=== PATIENT | female | born 2000 | race Caucasian/White ===

== ENCOUNTER 2021-06-28 05:34 | Emergency (ER) | payer MEDICAID, SELFPAY ==
[2021-06-28 05:38] VITALS: BP 125/91; PULSE 83; RESP 15; TEMP 36.8; O2SAT 100; BMI 18.3
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
[2021-06-28 07:45] VITALS: BP 104/64; PULSE 66; RESP 18; O2SAT 99
== END 2021-06-28 08:40 | disposition home or self-care (01) ==
PROVIDERS: Emergency Provider Emergency Medicine
DX: M25.562 Pain in left knee (principal)
CPT/HCPCS: 73562; 73590; 99283

== ENCOUNTER 2021-08-08 17:23 | Emergency (ER) | payer MEDICAID, SELFPAY ==
[2021-08-08 17:43] VITALS: BP 113/77; PULSE 131; RESP 18; TEMP 39.5; O2SAT 97; BMI 17.7
--- NOTE | 2021-08-08 18:12 | W.ED.COVID ---
HPI - COVID General: Chief Complaint: Abdominal Pain Stated Complaint: RLQ PAIN/ FEVER Time Seen by Provider: 08/08/21 18:06 Triage information: No fever, cough or shortness of breath. No known COVID + exposure last 14 days History of Present Illness: HPI Narrative: Patient complains about fever and general body aches and headache since 7:00 last night. No known Covid exposure. Prior covid testing: no COVID 19 common symptoms: positive fever(s), chills, cough, body aches and headache(s); negative non-productive cough, productive cough, dyspnea, throat pain, nasal congestion, nausea or vomiting COVID 19 other sytmptoms: negative chest pain Onset (ago): hour(s) Severity: moderate Treatment prior to arrival: none COVID Results: No Data to Display Review of Systems Const: Reports: fever(s), chills and body aches Eyes: Denies: change in vision or blurry vision ENMT: Denies: throat pain or nasal congestion Card: Denies: chest pain or dyspnea on exertion Resp: Denies: dyspnea, productive cough or non-productive cough GI: Denies: abdominal pain, nausea or vomiting Musc: Denies: extremity pain Skin/Breast: Denies: rash Neuro: Reports: headache(s) Psych: Denies: anxiety or depression Mykel/Lymph: Denies: easy bruising PFSH ED PFSH: 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 Female Reproductive History: Date of last menstrual period: 07/17/21 Physical Exam Const: COMMON NORMALS: no acute distress, average body habitus and patient oriented x3 HENMT: COMMON NORMALS: normocephalic HEAD & SCALP: normal to inspection and normocephalic FACE & SINUS: normal facial exam Eye: COMMON NORMALS: conjunctivae normal GENERAL EYE: appearance normal, both eyes and all related structures CONJUNCTIVA: Yes conjunctivae normal Neck/C-Spine: COMMON NORMALS: no JVD Chest: COMMONS NORMALS: normal inspection of the chest Resp: COMMON NORMALS: normal respiratory effort and clear to auscultation bilaterally AUSCULTATION: clear to auscultation bilaterally Cardio: COMMON NORMALS: no JVD, regular rate and regular rhythm RATE: regular rate RHYTHM: regular rhythm GI: COMMON NORMALS: Normal to inspection, nondistended, normoactive bowel sounds present : BLADDER/KIDNEY EXAM: Yes CVA tenderness on the right Back/Pelvis: GENERAL BACK: Yes CVA tenderness Extremity: COMMON NORMALS: normal to inspection and full ROM Neuro: COMMON NORMALS: patient oriented x3 Course Vital Signs: Vital signs: Vital Signs Temperature 103.1 F H 08/08/21 17:43 Pulse Rate 131 H 08/08/21 17:43 Respiratory Rate 18 08/08/21 17:43 Blood Pressure 113/77 08/08/21 17:43 Pulse Oximetry 97 08/08/21 17:43 MDM - COVID COVID Results: No Data to Display Coding Level of Care Code ED Night Monitor for Juanito Sage
[2021-08-08 18:35] VITALS: BP 106/61; PULSE 112; RESP 18; O2SAT 97
[2021-08-08] MEDS: sodium chloride 0.9% 1,000 ML 999 ML IV (18:37)
[2021-08-08] MEDS: acetaminophen 500 mg Tablet 1000 MG PO (18:38)
[2021-08-08 18:54] LABS: Basophils # 0.1 10^3/uL (0.0-0.1); Basophils % 0.2 %; Hematocrit 39.2 % (37.0-47.0); Lymphocytes % 4.7 %; Mean Corpuscular HGB Conc 33.2 g/dL (30.0-36.0); Mean Corpuscular Hemoglobin 31.5 pg (28.0-34.0); Mean Corpuscular Volume 94.9 fl (81-99); Mean Platelet Volume 11.1 fL (7.4-10.4); Monocytes # 3.2 10^3/uL (0.2-0.9); Monocytes % 14.3 %; Neutrophils # 17.88 10^3/uL (1.8-7.7); Neutrophils % 80.1 %; Nucleated Red Blood Cells % 0 %; Platelet Count 258 10^3/cmm (130-400); Red Blood Count 4.13 10^6/uL (4.1-5.3); Red Cell Distribution Width 11.9 % (12.1-15.1); White Blood Count 22.3 10^3/uL (4.0-10.0)
[2021-08-08 19:09] LABS: SARS Covid-2 Antigen Negative (Negative)
[2021-08-08 19:12] LABS: Alanine Aminotransferase 27 U/L (0-33); Alkaline Phosphatase 77 IU/L (35-105); Anion Gap 15.5 (5-19); Aspartate Amino Transferase 26 U/L (0-32); Blood Urea Nitrogen 9 mg/dL (6-20); Calcium 8.8 mg/dL (8.5-10.5); Carbon Dioxide 25 mmol/L (22-29); Chloride 97 mmol/L (98-107); Globulin 3.4 g/dL (1.3-4.6); Glomerular Filtration Rate 78.3 mL/min (90-130); Glucose 115 mg/dL (65-115); Lipase 16 U/L (13-60); Osmolality Calculated 278 mOsm/kg (285-295); Potassium 3.5 mmol/L (3.5-5.1); Sodium 134 mmol/L (136-145); Total Bilirubin 0.9 mg/dL (0.15-1.2); Total Protein 7.4 g/dL (6.6-8.7)
--- NOTE | 2021-08-08 19:12 | CTR_ITS ---
PROCEDURE INFORMATION: Exam: CT Abdomen And Pelvis With Contrast Exam date and time: 08/08/2021 7:12 PM Age: 21 years old Clinical indication: Abdominal pain; Localized; Right lower quadrant (rlq); Prior surgery; Surgery type: Shunt; Additional info: Fever. Rlq apin TECHNIQUE: Imaging protocol: Computed tomography of the abdomen and pelvis with contrast. Radiation optimization: All CT scans at this facility use at least one of these dose optimization techniques: automated exposure control; mA and/or kV adjustment per patient size (includes targeted exams where dose is matched to clinical indication); or iterative reconstruction. Contrast material: OMNI 300; Contrast volume: 75 ml; Contrast route: INTRAVENOUS (IV); COMPARISON: No relevant prior studies available. RADIATION DOSE METRICS: Total DLP (mGy-cm): 686.38 FINDINGS: Tubes, catheters and devices: Right -sided ventriculoperitoneal shunt catheter. [id number] pelvic fluid most consistent with fluid from the MIGRATION SPECIALIST shunt catheter. Liver: Normal. No mass. Gallbladder and bile ducts: Normal. No calcified stones. No ductal dilation. Pancreas: Normal. No ductal dilation. Spleen: Normal. No splenomegaly. Adrenal glands: Normal. No mass. Kidneys and ureters: Multiple peripheral wedge-shaped hypodense right renal perfusion defects consistent with right pyelonephritis. Moderate to severe right pyelonephritis with thickening in the right urothelium consistent with significant urinary tract infection. Stomach and bowel: Unremarkable. No obstruction. No mucosal thickening. Appendix: Normal appendix. Intraperitoneal space: Unremarkable. No free air. No significant fluid collection. Vasculature: One or more calcified pelvic phleboliths. Lymph nodes: Unremarkable. No enlarged lymph nodes. Urinary bladder: Unremarkable as visualized. Reproductive: Multiple small bilateral physiologic ovarian cysts. Bones/joints: Unremarkable. No acute fracture. Soft tissues: Unremarkable. Other findings: Mild levoscoliosis. CT/CT abdomen pelvis w con* [id number] IMPRESSION: 1. Fbow-mh-[id number] pelvic fluid most consistent with fluid from the MIGRATION SPECIALIST shunt catheter. 2. Moderate to severe right pyelonephritis with thickening in the right urothelium consistent with significant urinary tract infection. Radiation Dose CTDIVOL = (mGy): DLP = 686.38 (mGy-cm)
[2021-08-08 19:14] LABS: Lactate (Lactic Acid level) 0.9 mmol/L (0.5-2.2)
[2021-08-08] MEDS: ondansetron 2 mg/ML SDV 2 mL 8 MG IVP (19:18)
[2021-08-08 19:19] VITALS: RESP 18
[2021-08-08] MEDS: morphine 4 mg/mL SDV 1 mL IVP (19:19)
[2021-08-08 19:25] LABS: Add Urine Microscopic? YES; Bilirubin Urine 1+ (Negative); Blood Urine 2+ (Negative); Glucose Urine UA Norm (Normal); Ketones Urine 1+ (Negative); Leukocyte Esterase Urine 2+ (Negative); Nitrate Urine Positive (Negative); Protein Urine 2+ (Negative); Specific Gravity, Urine 1.015 (1.005-1.030); Urine Appearance Cloudy (CLEAR); Urine Color Amber (Yellow); Urobilinogen Urine 8 mg/dL (Negative); pH Urine 5 (5-7)
[2021-08-08 19:27] LABS: HCG Qualitative Urine. Negative (Negative)
[2021-08-08 19:28] VITALS: BP 113/70; PULSE 109; RESP 20; TEMP 37.9; O2SAT 96
[2021-08-08 19:41] LABS: Add Urine Culture? Yes; Bacteria Urine 2+ /hpf; Squamous Epithelial Cell Urine 0-4 /hpf (0-5); WBC Urine 55-80 /hpf (0-5)
[2021-08-08] MEDS: cefTRIAXone 1,000 MG in sodium chloride 0.9% (plus) 50 ML 100 MG IV (20:04)
[2021-08-08] MEDS: iohexol 300 mg/mL 100 mL Btl IV (20:08)
[2021-08-08 21:22] VITALS: BP 109/74; PULSE 83; RESP 18; O2SAT 96
== END 2021-08-08 21:22 | disposition home or self-care (01) ==
PROVIDERS: Emergency Provider Nurse Practitioner Family
DX: R10.9 Unspecified abdominal pain (principal); Z20.822 Contact with and (suspected) exposure to COVID-19
CPT/HCPCS: 74177; 80053; 81001; 81025; 83605; 83690; 85025; 87040; 87077; 87086; 87186; 87426; 96365; 96375; 99284; J0696; J2270; J2405; J7030; Q9967

== ENCOUNTER → 2021-08-25 14:27 | Outpatient (BNVA) | payer MEDICAID, SELFPAY | PROVIDERS: Visit Provider Nurse Practitioner | DX: Z34.90 Encounter for supervision of normal pregnancy, unspecified, unspecified trimester (principal) | CPT/HCPCS: 81025 ==

== ENCOUNTER 2021-11-06 19:53 | Emergency (ER) | payer MEDICAID, SELFPAY ==
[2021-11-06 20:09] VITALS: BP 130/76; PULSE 94; RESP 18; TEMP 37.1; O2SAT 99; BMI 18.8
--- NOTE | 2021-11-06 21:17 | ED_ITS ---
HPI - Headache General: Chief Complaint: Headache Stated Complaint: migraines 9 weeks Time Seen by Provider: 11/06/21 20:40 History of Present Illness: HPI Narrative: Patient is a 21-year-old female that is currently 9 weeks and comes to the ED with a headache. 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 She had headaches back then but has not had any for years. Headache started today when she woke up. She states this is the worst headache she has ever had and she rates it currently a 9 out of 10. She has not taken any Tylenol or ibuprofen today to help with headache. She denies any nausea/vomiting, vision changes, neuro deficits. Patient does report feeling a little more tired over the past couple days but no other symptoms noted. Denies any vaginal bleeding, nausea/vomiting, neuro symptoms, photophobia. Associated symptoms: Deny chest pain, fever(s), nausea, rash or vomiting Review of Systems Const: Denies: fever(s), chills or fatigue Eyes: Denies: change in vision or eye discomfort ENMT: Denies: throat pain, odynophagia, nasal discharge or nasal congestion Card: Denies: chest pain, palpitations, edema, swelling of feet/ankles, dyspnea on exertion or orthopnea Resp: Denies: dyspnea, productive cough or non-productive cough GI: Denies: abdominal pain, nausea, vomiting, diarrhea, constipation or hematochezia : Denies: flank pain, dysuria or hematuria Musc: Denies: neck pain, back pain or extremity swelling Skin/Breast: Denies: rash or new lesions Neuro: Reports: headache(s); Denies: numbness in extremities or weakness in extremities PFSH ED PFSH: Surgical History 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) shunt status Social History Smoking and tobacco status: never smoked Female Reproductive History: Date of last menstrual period: 07/17/21 Physical Exam Const: COMMON NORMALS: no acute distress, patient oriented x3 and alert HENMT: COMMON NORMALS: normocephalic HEAD & SCALP: normocephalic MOUTH: Normal oral and palatal mucosa present THROAT: posterior oropharynx normal and uvula midline Eye: COMMON NORMALS: Equal, round and reactive pupils present and EOMs intact bilaterally PUPIL: Yes Equal, round and reactive pupils present Neck/C-Spine: COMMON NORMALS: supple GENERAL: Yes normal visual inspection Resp: COMMON NORMALS: normal respiratory effort, No retractions, No use of accessory muscles and clear to auscultation bilaterally AUSCULTATION: clear to auscultation bilaterally Cardio: COMMON NORMALS: regular rate, regular rhythm, S1 normal heart sound present, S2 normal heart sound present, No gallops present (Cardio), No clicks present (Cardio), No murmurs present (Cardio) and Peripheral pulses 2+ throughout RATE: regular rate RHYTHM: regular rhythm HEART SOUNDS: S1 normal heart sound present and S2 normal heart sound present PERIPHERAL PULSES: Peripheral pulses 2+ throughout GI: COMMON NORMALS: Normal to inspection, nondistended, normoactive bowel sounds present, Soft to palpation, non-tender and no masses PALPATION: Yes Soft to palpation : COMMON NORMALS: Yes no CVA tenderness BLADDER/KIDNEY EXAM: Yes no CVA tenderness Back/Pelvis: COMMON NORMALS: no CVA tenderness Extremity: COMMON NORMALS: normal to inspection Neuro: COMMON NORMALS: patient oriented x3, CN's II-XII intact bilaterally, moves all extremities, no focal motor deficits and no sensory deficits noted SENSORIUM/ORIENTATION: Yes alert MOTOR EXAM: 5/5 motor strength present throughout Skin: GENERAL SKIN EXAM: dry skin Course Vital Signs: Vital signs: Vital Signs Temperature 98.6 F 11/06/21 22:44 Pulse Rate 90 11/06/21 22:44 Respiratory Rate 18 11/06/21 22:44 Blood Pressure 128/72 11/06/21 22:44 Pulse Oximetry 98 11/06/21 22:44 MDM - Headache MDM Narrative: Medical decision making narrative: Patient is a 21-year-old female that is 9 weeks and comes to the ED with headache. Patient has a history of a past REPAIRING CALIBRATOR shunt that she had placed back when she was 5 years old. Patient says she has never had a headache like this before. Denies any vaginal bleeding, photophobia, neuro symptoms, nausea or vomiting. Patient appears in no acute distress or pain and is sitting comfortably on exam bed. Exam is benign and no neuro deficits noted. Vital stable. CT of head was done and it showed no acute findings but did notate there is some slightly larger ventricles compared to CT head done back in 2017. Patient was given dose of hydrocodone to help with headache and it did improve some. Patient diagnosed with a headache and discharged home. He few was told to follow-up with her PCP and 7 to 10 days for reevaluation. I told her about the CT findings and that she tell doctor about CT report and possibly have follow-up CT of head done in the next 6 months to a year pending her having any symptoms. Return to ED precautions given. Patient understood and agree with plan. Imaging Data^: CT Head: Attestation: I personally reviewed and interpreted this imaging study as follows: Radiologist's impression: [employer] 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 Radiation optimization: All CT scans at this facility use at least one of these dose optimization techniques: automated exposure control; mA and/or kV adjustment per patient size (includes targeted exams where dose is matched to clinical indication); or iterative reconstruction. COMPARISON: CT head wo con* [id number] 2017-03-09 16:15 RADIATION DOSE METRICS: Total DLP (mGy-cm): 766.29 FINDINGS: Tubes, catheters and devices: A REPAIRING CALIBRATOR shunt tube extends from the right posterior parietal bone. Brain: The inferior tip lies near the midline and is unchanged. Absence of the corpus callosal splenium. Enlarged superior cerebellar cistern. Right frontal parietal atrophy. Small posterior fossa with cerebellar tonsillar herniation. Unchanged hyperdensity within the right foramen Monro. 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 Cerebral ventricles: Bilateral frontal horns of the lateral ventricles are slightly larger than prior. Small 4th ventricle. Paranasal sinuses: Visualized sinuses are unremarkable. No fluid levels. Mastoid air cells: Visualized mastoid air cells are well aerated. Bones/joints: Unremarkable. No acute fracture. Soft tissues: Unremarkable. CT/CT head wo con* [id number] IMPRESSION: Ventricles are slightly larger than prior, otherwise unchanged. Dictated By: Mehdi Guevara MD Signed By: Mehdi Guevara MD Signed Date/Time: 11/06/212204 DD/ 28 Discharge Plan Discharge Patient Disposition: Home Clinical Impression: Headache Qualifiers: Headache type: tension-type Headache chronicity pattern: acute headache Intractability: not intractable Qualified Code(s): G44.209 - Tension-type headache, unspecified, not intractable Condition: Stable Prescriptions: No Action No Known Home Medications RF: 0 Discharge Orders: Discharge ED (Routine); Ordered 11/06/21 Ordered By: Dilshad Somers Referrals: Thee Fish MD [Primary Care Provider] - Discharge Diet: Regular Discharge Activity: Resume usual activity Patient Instructions: Acute Headache (DC) Activity Restrictions/Additional Instructions: Follow-up with medical provider as directed in 7 to 10 days reevaluation. Take [id number] Tylenol for any reoccurring headaches. Your CT of the head today showed ventricles were just slightly larger compared to prior imaging study in 2017. I recommend letting your doctor know about CT findings and they might want to do a follow-up CT to check for any progression in about a year or sooner depending on symptoms. return to the ER or your medical provider if condition worsens. Please read and understand discharge instructions. Thank you for choosing [facility] for your healthcare needs today. Please realize this is an emergency room and that we are providing you with a medical screening exam and this may not be complete and all inclusive of all the testing and or work up that you may need to determine your ailment or severity of your illness. It is very important that you follow up as instructed or that you return to the Emergency Department should you have concerns or if your condition changes or worsens in any way. Coding Level of Care Code ED Color Tester for Chg Fwd Exam Comprehensive
[2021-11-06] MEDS: HYDROcodone-acetaminophen 5-325 mg Tablet 1 TAB PO (21:26)
--- NOTE | 2021-11-06 21:29 | CTR_ITS ---
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 Radiation optimization: All CT scans at this facility use at least one of these dose optimization techniques: automated exposure control; mA and/or kV adjustment per patient size (includes targeted exams where dose is matched to clinical indication); or iterative reconstruction. 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 Brain: The inferior tip lies near the midline and is unchanged. Absence of the corpus callosal splenium. Enlarged superior cerebellar cistern. Right frontal parietal atrophy. Small posterior fossa with cerebellar tonsillar herniation. Unchanged hyperdensity within the right foramen Monro. 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 Cerebral ventricles: Bilateral frontal horns of the lateral ventricles are slightly larger than prior. Small 4th ventricle. Paranasal sinuses: Visualized sinuses are unremarkable. No fluid levels. Mastoid air cells: Visualized mastoid air cells are well aerated. Bones/joints: Unremarkable. No acute fracture. Soft tissues: Unremarkable. CT/CT head wo con* [id number] IMPRESSION: Ventricles are slightly larger than prior, otherwise unchanged.
[2021-11-06 22:44] VITALS: BP 128/72; PULSE 90; RESP 18; TEMP 37; O2SAT 98
== END 2021-11-06 22:45 | disposition home or self-care (01) ==
PROVIDERS: Emergency Provider Physician Assistant; PCP Family Medicine
DX: O26.891 Other specified pregnancy related conditions, first trimester (principal); G44.209 Tension-type headache, unspecified, not intractable; Z3A.09 9 weeks gestation of pregnancy
CPT/HCPCS: 70450; 99283

== ENCOUNTER 2021-11-10 17:11 | Emergency (ER) | payer MEDICAID, SELFPAY ==
[2021-11-10 17:39] VITALS: BP 137/77; PULSE 82; RESP 14; TEMP 37; O2SAT 100; BMI 19.3
[2021-11-10 20:18] LABS: Add Urine Microscopic? YES; Bilirubin Urine Neg (Negative); Blood Urine Neg (Negative); Glucose Urine UA Norm (Normal); Ketones Urine Negative (Negative); Leukocyte Esterase Urine 2+ (Negative); Nitrate Urine Positive (Negative); Protein Urine Neg (Negative); Urine Color Yellow (Yellow); Urobilinogen Urine Norm (Negative); pH Urine 6 (5-7)
[2021-11-10 20:19] LABS: Add Urine Culture? No; Bacteria Urine 4+ /hpf; RBC Urine 0-4 /hpf (0-2); Squamous Epithelial Cell Urine 55-80 /hpf (0-5); WBC Urine >100 /hpf (0-5)
[2021-11-10 21:22] LABS: Basophils % 0.3 %; Eosinophils # 0.2 10^3/uL (0.0-0.8); Eosinophils % 1.2 %; Hematocrit 40.2 % (37.0-47.0); Hemoglobin 13.7 g/dL (11.5-15.3); Lymphocytes # 2.2 10^3/uL (0.8-4.8); Lymphocytes % 14.1 %; Mean Corpuscular HGB Conc 34.1 g/dL (30.0-36.0); Mean Corpuscular Hemoglobin 31.4 pg (28.0-34.0); Mean Platelet Volume 10.7 fL (7.4-10.4); Monocytes % 6.5 %; Neutrophils # 12.09 10^3/uL (1.8-7.7); Neutrophils % 77.5 %; Nucleated Red Blood Cells % 0 %; Platelet Count 328 10^3/cmm (130-400); Red Blood Count 4.37 10^6/uL (4.1-5.3); Red Cell Distribution Width 12.7 % (12.1-15.1); White Blood Count 15.6 10^3/uL (4.0-10.0)
[2021-11-10 21:52] LABS: Alanine Aminotransferase 13 U/L (0-33); Albumin Level 4.2 g/dL (3.5-5.2); Alkaline Phosphatase 58 IU/L (35-105); Anion Gap 15.6 (5-19); Aspartate Amino Transferase 15 U/L (0-32); Blood Urea Nitrogen 8 mg/dL (6-20); Calcium 8.6 mg/dL (8.5-10.5); Carbon Dioxide 23 mmol/L (22-29); Chloride 101 mmol/L (98-107); Globulin 3.1 g/dL (1.3-4.6); Glucose 84 mg/dL (65-115); Osmolality Calculated 280 mOsm/kg (285-295); Potassium 3.6 mmol/L (3.5-5.1); Sodium 136 mmol/L (136-145); Total Bilirubin 0.2 mg/dL (0.15-1.2); Total Protein 7.3 g/dL (6.6-8.7)
--- NOTE | 2021-11-10 23:11 | W.ED.PREGNAN ---
HPI - General: Chief complaint: OB/Uterine Contractions Stated complaint: PREG AND CRAMPING (DONT KNOW HOW MANY WEEKS) Time Seen by Provider: 11/10/21 23:11 History of Present Illness: HPI Narrative: Patient comes in today with some lower abdominal tenderness and cramping with difficulty urinating. On exam patient appears well. Patient appears in no pain. Patient denies any vaginal bleeding. 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 (ventriculoperitoneal) shunt status Social History Smoking and tobacco status: never smoked Female Reproductive History: Date of last menstrual period: 07/17/21 Physical Exam Const: COMMON NORMALS: no acute distress and patient oriented x3 GENERAL APPEARANCE: cooperative HENMT: COMMON NORMALS: normocephalic and Normal external nose present HEAD & SCALP: normal to inspection and normocephalic NOSE: Normal external nose present MOUTH: Normal oral and palatal mucosa present Eye: GENERAL EYE: appearance normal, both eyes and all related structures Neck/C-Spine: COMMON NORMALS: full ROM Chest: COMMONS NORMALS: normal inspection of the chest Resp: COMMON NORMALS: normal respiratory effort EFFORT & INSPECTION: Yes able to speak in complete sentences Cardio: COMMON NORMALS: regular rate and regular rhythm RATE: regular rate RHYTHM: regular rhythm GI: COMMON NORMALS: non-tender : COMMON NORMALS: Yes no CVA tenderness BLADDER/KIDNEY EXAM: Yes no CVA tenderness Back/Pelvis: COMMON NORMALS: no CVA tenderness Extremity: COMMON NORMALS: normal to inspection Neuro: COMMON NORMALS: patient oriented x3 and moves all extremities Psych: COMMON NORMALS: mental status grossly normal and cooperative Skin: COMMON NORMALS: no rashes or lesions noted GENERAL SKIN EXAM: no rashes or lesions noted Course Vital Signs: Vital signs: Vital Signs Temperature 98.6 F 11/10/21 17:39 Pulse Rate 82 11/10/21 17:39 Respiratory Rate 14 11/10/21 17:39 Blood Pressure 137/77 11/10/21 17:39 Pulse Oximetry 100 11/10/21 17:39 MDM - OB/Uterine Contractions MDM Narrative: Medical decision making narrative: Patient came in today for concerns of and pelvic discomfort. Patient also reports some urinary difficulty. Patient denies any vaginal bleeding. On exam abdomen soft nontender. Vital signs were normal. Patient appears well. Differential diagnosis includes but not limited to urinary tract infection, STI, threatened miscarriage. Laboratory values were unremarkable except for some elevation of white count at 15,000. Urinalysis was positive for large amounts of white blood cells and nitrates. Patient also had some significant number of squamous cells in the urine. With patient's symptoms and absence of any vaginal bleeding I feel the patient probably has a urinary tract infection and will treat with cephalexin 500 twice a day for 7 days. Recommended patient follow-up with primary care in 2 to 3 days for recheck. Patient reported understanding and agreed to plan. Lab Data: Labs: Lab Results 11/10/21 11/10/21 11/10/21 18:20 21:09 21:09 WBC 15.6 10^3/uL H 10 ^3/uL (4.0-10.0) RBC 4.37 10^6/uL 10^6 /uL (4.1-5.3) Hgb 13.7 g/dL g/dL (11.5-15.3) Hct 40.2 % % (37.0-47.0) MCV 92.0 fl fl (81-99) MCH 31.4 pg pg (28.0-34.0) MCHC 34.1 g/dL g/dL (30.0-36.0) RDW 12.7 % % (12.1-15.1) Plt Count 328 10^3/cmm 10^3 /cmm (130-400) MPV 10.7 fL H fL (7.4-10.4) Neut % (Auto) 77.5 % % Lymph % (Auto) 14.1 % % [place] % (Auto) 6.5 % % Eos % (Auto) 1.2 % % Baso % (Auto) 0.3 % % Neut # (Auto) 12.09 10^3/uL H 1 0^3/uL (1.8-7.7) Lymph # (Auto) 2.2 10^3/uL 10^3/ uL (0.8-4.8) [place] # (Auto) 1.0 10^3/uL H 10^ 3/uL (0.2-0.9) Eos # (Auto) 0.2 10^3/uL 10^3/ uL (0.0-0.8) Baso # (Auto) 0.0 10^3/uL 10^3/ uL (0.0-0.1) Nucleated RBC % (a uto) 0 % % Nucleated RBCs # 0.0 /100WBC /100W BC Sodium 136 mmol/L mmol/L (136-145) Potassium 3.6 mmol/L mmol/L (3.5-5.1) Chloride 101 mmol/L mmol/L (98-107) Carbon Dioxide 23 mmol/L mmol/L (22-29) Anion Gap 15.6 (5-19) BUN 8 mg/dL mg/dL (6-20) Creatinine 0.6 mg/dL mg/dL (0.5-0.9) GFR Calculation 125.0 mL/min mL/m in (90-130) Glucose 84 mg/dL mg/dL (65-115) Calculated Osmolal ity 280 mOsm/kg L mOs m/kg (285-295) Calcium 8.6 mg/dL mg/dL (8.5-10.5) Total Bilirubin 0.2 mg/dL mg/dL (0.15-1.2) AST 15 U/L U/L (0-32) ALT 13 U/L U/L (0-33) Alkaline Phosphata se 58 IU/L IU/L (35-105) Total Protein 7.3 g/dL g/dL (6.6-8.7) Albumin 4.2 g/dL g/dL (3.5-5.2) Globulin 3.1 g/dL g/dL (1.3-4.6) Ser , [place] [address].00 mIU/mL m IU/mL Urine Color Yellow (Yellow) Urine Appearance Sl cloudy A (CLEAR) Urine pH 6 (5-7) Ur Specific Gravit y 1.020 (1.005-1.030) Urine Protein Neg (Negative) Urine Glucose (UA) Norm (Normal) Urine Ketones Negative (Negative) Urine Blood Neg (Negative) Urine Nitrate Positive H (Negative) Urine Bilirubin Neg (Negative) Urine Urobilinogen Norm mg/dL mg/dL (Negative) Ur Leukocyte Meena ase 2+ H (Negative) Urine RBC 0-4 /hpf H /hpf (0-2) Urine WBC >100 /hpf H /hpf (0-5) Ur Squamous Epith Cells 55-80 /hpf H /hpf (0-5) Amorphous Sediment Not Reportable Urine Bacteria 4+ /hpf H /hpf (NONE) Discharge Plan Discharge Patient Disposition: Home Clinical Impression: Incidental UTI (urinary tract infection) Qualifiers: Urinary tract infection type: acute cystitis Hematuria presence: without hematuria Qualified Code(s): N30.00 - Acute cystitis without hematuria Condition: Stable Prescriptions: New cephalexin 500 mg capsule 500 mg PO BID 7 Days Qty: 14 RF: 0 Discharge Orders: Discharge ED (Routine); Ordered 11/10/21 Ordered By: Bry Harvey Referrals: Thee Fish MD [Primary Care Provider] - Discharge Diet: Usual diet Discharge Activity: Increase activity as tolerated Patient Instructions: Urinary Tract Infection in (ED) Activity Restrictions/Additional Instructions: Drink plenty of fluids. Follow-up with primary care for further instruction. Return to ER for high fever greater than 100.4, inability to hold fluids down, or vaginal bleeding. Coding Level of Care Code ED Director Of Compliance for Juanito Sage
[2021-11-10] MEDS: cephALEXin 500 mg Capsule PO (23:22)
== END 2021-11-10 23:24 | disposition home or self-care (01) ==
PROVIDERS: Emergency Medicine; Emergency Provider Nurse Practitioner Family; PCP Family Medicine
DX: O23.40 Unspecified infection of urinary tract in pregnancy, unspecified trimester (principal); N39.0 Urinary tract infection, site not specified; Z3A.00 Weeks of gestation of pregnancy not specified
CPT/HCPCS: 80053; 81001; 84702; 85025; 99283

== ENCOUNTER 2021-11-23 11:17 | Emergency (ER) | payer MEDICAID, SELFPAY ==
--- NOTE | 2021-11-23 11:22 | CTR_ITS ---
PROCEDURE INFORMATION: Exam: CT Head Without Contrast Exam date and time: 11/23/2021 11:22 AM Age: 21 years old Clinical indication: Altered mental status/memory loss; Prior surgery; Additional info: AMS, shield stomach TECHNIQUE: Imaging protocol: Computed tomography of the head without contrast. Axial, coronal and sagittal reformatted images were created and reviewed. Radiation optimization: All CT scans at this facility use at least one of these dose optimization techniques: automated exposure control; mA and/or kV adjustment per patient size (includes targeted exams where dose is matched to clinical indication); or iterative reconstruction. COMPARISON: CT head wo con* [id number] 11/06/2021 9:51 PM RADIATION DOSE METRICS: Total DLP (mGy-cm): 793.31 FINDINGS: Brain: Linear encephalomalacia in the right frontal lobe, consistent with prior ventriculostomy tract. Low lying cerebellar tonsils, similar to prior. Dysgenesis of the corpus callosum. Unchanged linear density in the region of the foramen of Monro on the right. Right parietal volume loss. No CT evidence of acute intracranial hemorrhage or acute territorial infarction. No significant mass effect or midline shift. Basal cisterns patent. Cerebral ventricles: Unchanged right trans parietal ventriculostomy catheter. Ventricles unchanged in size and configuration. Paranasal sinuses: Minimal ethmoid and left maxillary sinus mucosal thickening. No fluid levels. Mastoid air cells: Grossly unremarkable. Bones/joints: No acute osseous abnormality. Right frontal and right parietal krysta holes. Soft tissues: Grossly unremarkable. CT/CT head wo con* [id number] IMPRESSION: 1. No CT evidence of acute intracranial abnormality. 2. Additional findings, as above.
--- NOTE | 2021-11-23 11:23 | ECG_ITS ---
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 Measurements Intervals [place] Rate: 84 P: 62 DC: 110 QRS: 67 QRSD: 89 T: 48 QT: 375 QTc: 446 Interpretive Statements SINUS RHYTHM WITH SHORT DC INTERVAL No previous ECG available for comparison Electronically Signed On 11-24-2021 8:15:04 CHILDREN'S TUTOR by María Hankins M.D. [id number]
--- NOTE | 2021-11-23 11:26 | W.ED.AMS ---
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 states they were at [facility] roughly 45 minutes ago and she grabbed his arm and then passed out. He states she has done this in the past she done it 1 month ago as well. He states that she went no rales he called EMS patient is now awake alert slightly lethargic but answering all my questions appropriately she knows her name able answer all her medical history questions she denies any headache she states that she just felt weak. Denies any chest pain vomiting. Associated symptoms: Deny depression Review of Systems Const: Denies: fever(s), chills, body aches or change in appetite Eyes: Denies: blurry vision or eye discomfort ENMT: Denies: throat pain or dental pain Card: Reports: syncope Resp: Denies: dyspnea GI: Denies: abdominal pain, nausea, vomiting or diarrhea : Denies: dysuria Musc: Denies: neck pain or back pain Skin/Breast: Denies: rash Neuro: Denies: headache(s) Psych: Denies: depression Mykel/Lymph: Denies: easy bruising All/Imm: Denies: urticaria PFSH ED PFSH: Surgical History CURATOR OF MANUSCRIPTS (ventriculoperitoneal) shunt status Social History Smoking and tobacco status: never smoked Female Reproductive History: Date of last menstrual period: 07/17/21 Physical Exam Const: COMMON NORMALS: no acute distress, patient oriented x3 and healthy appearing HENMT: COMMON NORMALS: normocephalic and atraumatic HEAD & SCALP: normocephalic and atraumatic Eye: COMMON NORMALS: Equal, round and reactive pupils present and EOMs intact bilaterally PUPIL: Yes Equal, round and reactive pupils present Neck/C-Spine: COMMON NORMALS: full ROM and supple Chest: COMMONS NORMALS: normal inspection of the chest and normal palpation of entire chest wall Resp: COMMON NORMALS: normal respiratory effort, No retractions, No use of accessory muscles and clear to auscultation bilaterally AUSCULTATION: clear to auscultation bilaterally Cardio: COMMON NORMALS: regular rate, regular rhythm and No murmurs present (Cardio) RATE: regular rate RHYTHM: regular rhythm GI: COMMON NORMALS: Normal to inspection, nondistended, normoactive bowel sounds present, Soft to palpation, non-tender and no masses PALPATION: Yes Soft to palpation Extremity: COMMON NORMALS: normal to inspection and full ROM Neuro: COMMON NORMALS: patient oriented x3, moves all extremities and no focal motor deficits Psych: COMMON NORMALS: mental status grossly normal, Normal thought process present and cooperative THOUGHT PROCESS: Normal thought process present Skin: COMMON NORMALS: no rashes or lesions noted and no wounds GENERAL SKIN EXAM: no rashes or lesions noted Course Vital Signs: Vital signs: Vital Signs Temperature 99.0 F 11/23/21 11:33 Pulse Rate 84 11/23/21 11:33 Respiratory Rate 19 H 11/23/21 11:33 Blood Pressure 140/89 11/23/21 11:33 Pulse Oximetry 98 11/23/21 11:33 MDM - Altered Mental Status MDM Narrative: Medical decision making narrative: Patient presents with a syncopal event likely vagal she is well-appearing here answering all my questions appropriately no signs of seizure head CT blood work here is all normal I did a bedside ultrasound showed an IUP consistent with dates heart rate of 148 she is to follow-up with her OB. Return if worsening she understands agrees to plan. Lab Data: Labs: Lab Results 11/23/21 11/23/21 11:42 11:42 WBC 11.0 10^3/uL H 10 ^3/uL (4.0-10.0) RBC 4.22 10^6/uL 10^6 /uL (4.1-5.3) Hgb 13.2 g/dL g/dL (11.5-15.3) Hct 38.8 % % (37.0-47.0) MCV 91.9 fl fl (81-99) MCH 31.3 pg pg (28.0-34.0) MCHC 34.0 g/dL g/dL (30.0-36.0) RDW 12.6 % % (12.1-15.1) Plt Count 294 10^3/cmm 10^3 /cmm (130-400) MPV 10.8 fL H fL (7.4-10.4) Neut % (Auto) 76.7 % % Lymph % (Auto) 15.4 % % [place] % (Auto) 5.7 % % Eos % (Auto) 1.6 % % Baso % (Auto) 0.2 % % Neut # (Auto) 8.40 10^3/uL H 10 ^3/uL (1.8-7.7) Lymph # (Auto) 1.7 10^3/uL 10^3/ uL (0.8-4.8) [place] # (Auto) 0.6 10^3/uL 10^3/ uL (0.2-0.9) Eos # (Auto) 0.2 10^3/uL 10^3/ uL (0.0-0.8) Baso # (Auto) 0.0 10^3/uL 10^3/ uL (0.0-0.1) Nucleated RBC % (a uto) 0 % % Nucleated RBCs # 0.0 /100WBC /100W BC Sodium 139 mmol/L mmol/L (136-145) Potassium 3.9 mmol/L mmol/L (3.5-5.1) Chloride 104 mmol/L mmol/L (98-107) Carbon Dioxide 25 mmol/L mmol/L (22-29) Anion Gap 13.9 (5-19) BUN 6 mg/dL mg/dL (6-20) Creatinine 0.6 mg/dL mg/dL (0.5-0.9) GFR Calculation 125.0 mL/min mL/m in (90-130) Glucose 96 mg/dL mg/dL (65-115) Calculated Osmolal ity 285 mOsm/kg mOsm/ kg (285-295) Calcium 8.5 mg/dL mg/dL (8.5-10.5) Total Bilirubin 0.2 mg/dL mg/dL (0.15-1.2) AST 14 U/L U/L (0-32) ALT 13 U/L U/L (0-33) Alkaline Phosphata se 45 IU/L IU/L (35-105) Total Protein 6.3 g/dL L g/dL (6.6-8.7) Albumin 3.8 g/dL g/dL (3.5-5.2) Globulin 2.5 g/dL g/dL (1.3-4.6) Imaging Data^: CT Head: Attestation: I personally reviewed and interpreted this imaging study as follows: Radiologist's impression: Impression: 1. No CT evidence of acute intracranial abnormality. 2. Additional findings, as above. Dictated By: Gregg George MD Signed By: Gregg George MD Signed Date/Time: 11/23/21 1217 DD/ 1122 EKG Data^: EKG 1: Attestation: I personally reviewed and interpreted this EKG as follows: EKG interpretation date: 11/23/21 EKG interpretation time: 11:35 Interpretation: nsr hr [address] or t wave abnormalities qrs 89 qtc 417 Discharge Plan Discharge Patient Disposition: Home Clinical Impression: Syncope Qualifiers: Syncope type: unspecified Qualified Code(s): R55 - Syncope and collapse Condition: Stable Discharge Orders: Discharge ED (Routine); Ordered 11/23/21 Ordered By: Dwaine York Referrals: Thee Fish MD [Primary Care Provider] - Discharge Diet: Advance as tolerated Discharge Activity: Resume usual activity Patient Instructions: Syncope (ED) Coding Level of Care Code ED Commercial Sheet Metal Foreman for Chg Fwd Exam Comprehensive
[2021-11-23 11:33] VITALS: BP 140/89; PULSE 84; RESP 19; TEMP 37.2; O2SAT 98; BMI 19.1
[2021-11-23 11:56] LABS: Basophils % 0.2 %; Eosinophils # 0.2 10^3/uL (0.0-0.8); Eosinophils % 1.6 %; Hematocrit 38.8 % (37.0-47.0); Hemoglobin 13.2 g/dL (11.5-15.3); Lymphocytes # 1.7 10^3/uL (0.8-4.8); Lymphocytes % 15.4 %; Mean Corpuscular Hemoglobin 31.3 pg (28.0-34.0); Mean Corpuscular Volume 91.9 fl (81-99); Mean Platelet Volume 10.8 fL (7.4-10.4); Monocytes # 0.6 10^3/uL (0.2-0.9); Monocytes % 5.7 %; Neutrophils % 76.7 %; Nucleated Red Blood Cells % 0 %; Platelet Count 294 10^3/cmm (130-400); Red Blood Count 4.22 10^6/uL (4.1-5.3); Red Cell Distribution Width 12.6 % (12.1-15.1)
[2021-11-23 12:10] LABS: Alanine Aminotransferase 13 U/L (0-33); Albumin Level 3.8 g/dL (3.5-5.2); Alkaline Phosphatase 45 IU/L (35-105); Anion Gap 13.9 (5-19); Aspartate Amino Transferase 14 U/L (0-32); Blood Urea Nitrogen 6 mg/dL (6-20); Calcium 8.5 mg/dL (8.5-10.5); Carbon Dioxide 25 mmol/L (22-29); Chloride 104 mmol/L (98-107); Globulin 2.5 g/dL (1.3-4.6); Glucose 96 mg/dL (65-115); Osmolality Calculated 285 mOsm/kg (285-295); Potassium 3.9 mmol/L (3.5-5.1); Sodium 139 mmol/L (136-145); Total Bilirubin 0.2 mg/dL (0.15-1.2); Total Protein 6.3 g/dL (6.6-8.7)
[2021-11-23 12:33] VITALS: BP 122/77; PULSE 78; RESP 18; O2SAT 97
== END 2021-11-23 12:35 | disposition home or self-care (01) ==
PROVIDERS: Emergency Provider Emergency Medicine; PCP Family Medicine
DX: O26.891 Other specified pregnancy related conditions, first trimester (principal); Z3A.08 8 weeks gestation of pregnancy
CPT/HCPCS: 70450; 80053; 85025; 93005; 99283

== ENCOUNTER 2022-06-02 08:56 | Inpatient (IN) | payer MEDICAID, SELFPAY ==
[2022-06-02] VITALS (67 sets, daily range): BP systolic 101–157; BP diastolic 55–98; PULSE 68–137; RESP 18; TEMP 35.5–36.9; O2SAT 96–100; BMI 27.6
[2022-06-02] MEDS: miSOPROStol 100 mcg tablet 25 MCG SUBLINGUAL (08:44)
[2022-06-02 09:03] LABS: Basophils % 0.4 %; Eosinophils # 0.2 10^3/uL (0.0-0.8); Eosinophils % 1.4 %; Hematocrit 31.7 % (37.0-47.0); Hemoglobin 10.3 g/dL (11.5-15.3); Lymphocytes # 1.5 10^3/uL (0.8-4.8); Lymphocytes % 13.8 %; Mean Corpuscular HGB Conc 32.5 g/dL (30.0-36.0); Mean Platelet Volume 11.2 fL (7.4-10.4); Monocytes % 9.2 %; Neutrophils # 8.24 10^3/uL (1.8-7.7); Neutrophils % 74.5 %; Nucleated Red Blood Cells % 0 %; Platelet Count 286 10^3/cmm (130-400); Red Blood Count 3.82 10^6/uL (4.1-5.3); Red Cell Distribution Width 14.5 % (12.1-15.1); White Blood Count 11.1 10^3/uL (4.0-10.0)
[2022-06-02] MEDS: lactated ringers 1,000 ML 999 ML IV ×3 (10:34→18:40)
--- NOTE | 2022-06-02 13:33 | ANES.PROC ---
Anesthesia Procedures Procedure/Date: 06/02/22 Epidural: Time Out Performed: Yes Consents Signed: Procedure Consent Consent: requested by attending/covering physician, from patient, risks and benefits reviewed and patient agrees to proceed Lumbar Level: L3-L4 Epidural position: sitting Epidural procedure: sterile prep of area, 1% lidocaine to numb the area, 18 g needle, negative for paresthesia passed, neg for paresthesia, test dose given, 1.5% xylocaine 1:200k epi, 0.2% Ropivacaine bolus ml (5), placed PCEA, no systemic response, sterile dressing applied, L.U.D. no apparent complications and 0.2% Ropiavacaine @ mls/hr (13)
--- NOTE | 2022-06-02 13:33 | ANES.PREANE2 ---
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 Did have dimple above gluteal crease. Inquired about spina bifida - patient denied any spina bifida. Patient informed of risk of herniation if wet tap in setting on any increased ICP Anesthetic Plan ASA status: 2 Anesthesia: Regional (specify below) Risk of > 500 ml blood loss (7ml/kg in children): No Medications/Allergies Home Medications Medication Instructions Recorded Confirmed Last Taken Type ferrous sulfate 325 mg (65 mg 325 mg PO DAILY 06/02/22 06/02/22 06/01/22 22:00 History iron) tablet (Iron (ferrous sulfate)) vit no.133-ferrous tab PO 06/02/22 06/01/22 22:00 History fumarate 28 mg-folic acid 800 mcg tablet () Allergies Allergy/AdvReac Type Severity Reaction Status Date / Time No Known Allergies Allergy Verified 11/10/21 17:39 Current Medications Generic Name Dose Route Start Last Admin Trade Name Freq PRN Reason Stop Dose Admin Lactated Ringer's 1,000 mls @ 999 mls/hr 06/02/22 08:23 06/02/22 10:58 Lactated Ringers IV 999 mls/hr .Q1H1M PRN Administration Per L&D Rescitation Protocol Ropivacaine 200 mg in 100 mls @ 6 mls/hr 06/02/22 10:45 06/02/22 10:58 Naropin Premix EPIDURAL 6 mls/hr .[id number] [place]TT Administration [facility] Anesthesia Surgical History 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
--- NOTE | 2022-06-02 17:30 | P.HPUD_ITS ---
Labor & Delivery H&P Update Date of Procedure: June 02, 2022 Date H&P Performed: 05/29/22 Admission Diagnosis: 22-year-old 3 para 1-0-1-1at 40 weeks estimated gestational age presenting with spontaneous rupture of membranes. Other information: The patient is an otherwise healthy 22-year-old female who presented to the hospital with spontaneous rupture of membranes. Her membranes ruptured about an hour and a half prior to arrival to hospital. Her contractions were not very strong, and she did not want have Pitocin. She was placed on Cytotec x1. And she progressed to complete without difficulty. Her was relatively unremarkable. Her blood type is A-. Her antibody screen was negative. Her Pap smear was notable for HPV initial Co. screen was positive and her follow-up glucose drain was negative. She is rubella immune. The remainder of her disease panel was within normal limits. Related Problem List Diagnoses (1) 40 weeks gestation of : (2) Spontaneous rupture of membranes: A&P Assessment & Plan (1) 40 weeks gestation of : Assessment & Plan: Anticipate routine pushing and delivery. She appears to be away so her labor process may be protracted. Status: Acute Code(s): Z3A.40 - 40 weeks gestation of (2) Spontaneous rupture of membranes: Status: Acute Assessment & Plan: * All medications have been reviewed for disease state management, side effects, interactions, or complications. * Patient medication history and treatment plan has been reviewed. Based on recommendation from [] and my own review, I am prescribing [] for patient. * Prescription e-prescribed to []
--- NOTE | 2022-06-02 18:30 | PM.DELIVERY ---
Delivery Note: Date of delivery: June 02, 2022 Pre-delivery diagnoses: 22-year-old 3 para 1-0-1-1 at 40 weeks estimated gestational age presenting with spontaneous rupture membranes Post-delivery diagnoses: Status post spontaneous vaginal delivery Procedure: Spontaneous vaginal delivery Delivering Physician: Thee Fish Estimated blood loss (mL): 100 Pre-Delivery Course: The patient presented to the hospital with spontaneous rupture of membranes. She was given Cytotec x1. An epidural was placed. She gradually progressed to complete without difficulty. She was noted to be in an OP position. After she had been pushing for over an hour and making little change, I rotated the head to an OA position. The patient then made better progress while pushing. Delivery: DELIVERY: The patient progressed to complete without difficulty. She delivered a male with a weight of 7 pounds 8 ounces with Apgars of 7, 9. The baby was delivered from the MARA position. A nuchal cord was noted and easily reduced. The had a brief shoulder dystocia which resolved after I delivered the posterior shoulder first. The baby appeared somewhat shocked, so I elected to immediately clamped and cut the cord, then handed the baby to the nurses who brought the baby to the warmer for further evaluation. Meconium was noted. The placenta and 3 vessel cord were delivered intact shortly thereafter. The perineum and vaginal vault were carefully examined. A first-degree posterior midline laceration was noted which was not bleeding and did not require repair.. Both the mother and the baby were in stable condition. Post-Delivery Status: Good A&P Assessment and plan (1) Spontaneous rupture of membranes: Status: Acute (2) 40 weeks gestation of : Status: Acute (3) Spontaneous vaginal delivery: Anticipate routine care. The patient does desire a tubal ligation. Status: Acute Coding Level of Care Code Acute Electroencephalographic Technician for Chg Fwd Diagnoses Spontaneous rupture of membranes 40 weeks gestation of Z3A.40 Spontaneous vaginal delivery O80
--- NOTE | 2022-06-02 18:36 | P.HP_ITS ---
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 The patient admitted clear earlier in her that she wanted to have a tubal ligation post delivery. We discussed the risks and alternatives including the risks of bleeding, infection, and damage to intra-abdominal organs. We discussed the risk of becoming again despite a successful tubal ligation. We also discussed the increased risk of an ectopic . She had no further questions and wished to have her tubes tied. I once again reiterated that she desired to have permanent sterilization and we once again discussed the risks after delivery. She made clear that she does want to proceed with a tubal ligation. It has been set up at 7:00 tomorrow morning. Present Details : 3 Para: 1 Date of Last Menstrual Period: 07/17/21 Calculated Date of Delivery: 04/23/22 Gestational Age Based on Last Menstrual Period: 45 Labs Rubella: Immune RPR: Negative GBS: Negative Review of Systems General: Reports: 10 or more systems reviewed and unremarkable except in HPI and below Const: Reports: fatigue; Denies: fever(s) Eyes: Denies: change in vision Card: Denies: chest pain Musc: Reports: back pain Mykel/Lymph: Denies: easy bruising Medications/Allergies Home Medications Medication Instructions Recorded Confirmed Last Taken Type ferrous sulfate 325 mg (65 mg 325 mg PO DAILY 06/02/22 06/02/22 06/01/22 22:00 History iron) tablet (Iron (ferrous sulfate)) vit no.133-ferrous tab PO 06/02/22 06/01/22 22:00 History fumarate 28 mg-folic acid 800 mcg tablet () Allergies Allergy/AdvReac Type Severity Reaction Status Date / Time No Known Allergies Allergy Verified 11/10/21 17:39 PFSH 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 PFSH: Surgical History 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 Social History Smoking and tobacco status: never smoked Vitals/I&O/Wt Last Vital Signs Temp 97.7 F 06/02/22 14:00 Pulse 107 H 06/02/22 18:24 Resp 18 06/02/22 11:00 BP 140/87 06/02/22 18:24 Pulse Ox 100 06/02/22 11:26 06/02/22 06/02/22 06/02/22 06:59 14:59 22:59 Intake Total 399.6 / 399.6 Output Total 300 / 300 Balance 399.6 / 399.6 -300 / 99.6 Weight last 48 hrs Weight 156 lb Weight 156 lb Physical Exam Const: COMMON NORMALS: no acute distress and patient oriented x3 GENERAL APPEARANCE: cooperative, comfortable and well developed HENMT: COMMON NORMALS: normocephalic and moist oral mucous membranes HEAD & SCALP: normocephalic Chest: COMMONS NORMALS: normal inspection of the chest Resp: COMMON NORMALS: normal respiratory effort and clear to auscultation bilaterally AUSCULTATION: clear to auscultation bilaterally Cardio: COMMON NORMALS: regular rate, regular rhythm, No gallops present (Cardio), No murmurs present (Cardio) and No rub (Cardio) RATE: regular rate RHYTHM: regular rhythm Extremity: COMMON NORMALS: normal to inspection Neuro: COMMON NORMALS: patient oriented x3 and no focal motor deficits Skin: COMMON NORMALS: no rashes or lesions noted GENERAL SKIN EXAM: no rashes or lesions noted Urinary Catheter Management: Melissa: Cath Placed During This Visit: yes, but has since been removed by the nurse Reason for Continuing Indwelling Catheter: Other Urinary Catheter Date of Insertion: 06/02/22 Urinary Catheter Time of Insertion: 11:36 Date Urinary Catheter Removed: 06/02/22 Time Urinary Catheter Discontinued: 15:35 Data : 06/02/22 08:55 A&P Assessment and plan (1) Consultation for sterilization: minilaparotomy bilateral tubal ligation is scheduled for tomorrow morning at 7:00. Patient has been notified she will be n.p.o. after midnight. Status: Acute (2) Status post vaginal delivery: Status: Acute Attestations Medical Necessity Statement*: Routine and post tubal care Coding Level of Care Code Acute Auto Mechanic for Chg Fwd Diagnoses Consultation for sterilization Z30.09 Status post vaginal delivery
[2022-06-02] MEDS: oxytocin 30 UNIT/500 ML BAG 999 UNIT IV (18:37)
--- NOTE | 2022-06-02 21:43 | PC.NURSE ---
Patient moved up to PP room at this time, no c/o nausea or feelings of lightheadedness
[2022-06-02] MEDS: ibuprofen 800 mg tablet PO (22:17)
[2022-06-03] VITALS (15 sets, daily range): BP systolic 118–139; BP diastolic 68–86; PULSE 74–95; RESP 15–18; TEMP 36.6–37; O2SAT 92–100
[2022-06-03 05:41] LABS: Hematocrit 32.1 % (37.0-47.0); Hemoglobin 10.4 g/dL (11.5-15.3); Mean Corpuscular HGB Conc 32.4 g/dL (30.0-36.0); Mean Corpuscular Hemoglobin 26.7 pg (28.0-34.0); Mean Corpuscular Volume 82.3 fl (81-99); Mean Platelet Volume 11.3 fL (7.4-10.4); Platelet Count 321 10^3/cmm (130-400); Red Cell Distribution Width 14.6 % (12.1-15.1); White Blood Count 20.7 10^3/uL (4.0-10.0)
[2022-06-03] MEDS: lactated ringers 1,000 ML 999 ML IV (06:16)
[2022-06-03] MEDS: citric acid-sodium citrate 30 mL UDC PO (06:51)
[2022-06-03] MEDS: famotidine 20 mg/2 mL INJ IVP (06:51)
[2022-06-03] MEDS: metoclopramide 5 mg/mL SDV 2 mL 10 MG IVP (06:51)
--- NOTE | 2022-06-03 07:48 | PM.OP ---
Operative Report Date of procedure: June 03, 2022 Pre-op diagnosis: Preop Diagnosis female desiring sterilization Post-op diagnosis: Same Procedure done: Minilaparotomy bilateral tubal ligation using a modified Gerardo technique Specimens removed/disposition: Bilateral fallopian tube segments Pathology: Bilateral fallopian tube segments with the right segment being tagged Estimated blood loss (mL): 10 Complications: None Procedure: The patient was brought back to the operating room where anesthesia was found to be adequate. 10 mL of 0.5% bupivacaine was then used to pre-anesthetize the area just inferior to the umbilicus. A #15 blade was then used to make a 3 cm transverse incision just inferior to the umbilicus. I then dissected down to the underlying subcutaneous tissue until arriving at the fascia. The fascia was then nicked with the scalpel. The fascial incision was extended manually. I identified the fundus of the uterus and followed it to the left fallopian tube. The fallopian tube was then followed to the fimbria. The tube was then ligated, cut, and cauterized in a modified [place] fashion using 0 chromic. The right fallopian tube was then identified and followed through to the fimbria. It was ligated, cut, and cauterized in similar fashion. The right fallopian tube was tagged. Both fallopian tubes had excellent hemostasis. The fascia was reapproximated using 0 Vicryl in running stitch. The subcutaneous tissue was carefully examined and no further bleeding was noted. The skin was then reapproximated using 4-0 Vicryl in a running subcuticular stitch. A sterile dressing was placed. All counts were correct x2. The patient was moved to the recovery room in stable condition.
--- NOTE | 2022-06-03 07:52 | PM.OBGYDC ---
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 She progressed to complete and had an unremarkable delivery of a healthy-appearing male . Her course was also unremarkable. She desired a tubal ligation which was performed the following morning. Her postoperative recovery was also unremarkable. She was discharged home later the same day Information Peripartum Data: Delivery Method: Vaginal Physical Exam Narrative: She is in no acute distress Lungs are clear auscultation bilaterally Her heart has a regular rate and rhythm Her fundus is below the umbilicus and firm Her dressing is clean, dry and intact Her extremities have trace edema Urinary Catheter Management: Melissa: Cath Placed During This Visit: yes, but has since been removed by the nurse Reason for Continuing Indwelling Catheter: Other Urinary Catheter Date of Insertion: 06/02/22 Urinary Catheter Time of Insertion: 11:36 Date Urinary Catheter Removed: 06/02/22 Time Urinary Catheter Discontinued: 15:35 Discharge Data Studies Completed and Pending Laboratory Results WBC 20.7 10^3/uL (4.0-10.0) H 06/03/22 05:35 RBC 3.90 10^6/uL (4.1-5.3) L 06/03/22 05:35 Hgb 10.4 g/dL (11.5-15.3) L 06/03/22 05:35 Hct 32.1 % (37.0-47.0) L 06/03/22 05:35 MCV 82.3 fl (81-99) 06/03/22 05:35 MCH 26.7 pg (28.0-34.0) L 06/03/22 05:35 MCHC 32.4 g/dL (30.0-36.0) 06/03/22 05:35 RDW 14.6 % (12.1-15.1) 06/03/22 05:35 Plt Count 321 10^3/cmm (130-400) 06/03/22 05:35 MPV 11.3 fL (7.4-10.4) H 06/03/22 05:35 Neut % (Auto) 74.5 % 06/02/22 08:55 Lymph % (Auto) 13.8 % 06/02/22 08:55 Howell % (Auto) 9.2 % 06/02/22 08:55 Eos % (Auto) 1.4 % 06/02/22 08:55 Baso % (Auto) 0.4 % 06/02/22 08:55 Neut # (Auto) 8.24 10^3/uL (1.8-7.7) H 06/02/22 08:55 Lymph # (Auto) 1.5 10^3/uL (0.8-4.8) 06/02/22 08:55 Howell # (Auto) 1.0 10^3/uL (0.2-0.9) H 06/02/22 08:55 Eos # (Auto) 0.2 10^3/uL (0.0-0.8) 06/02/22 08:55 Baso # (Auto) 0.0 10^3/uL (0.0-0.1) 06/02/22 08:55 Nucleated RBC % (auto) 0 % 06/02/22 08:55 Nucleated RBCs # 0.0 /100WBC 06/02/22 08:55 Vitals Last Vital Signs Temp 98.2 F 06/03/22 00:00 Pulse 90 06/03/22 02:29 Resp 18 06/03/22 02:29 BP 120/68 06/03/22 02:29 Pulse Ox 100 06/02/22 11:26 Discharge Plan Discharge Patient Disposition: Home Condition: Stable Prescriptions: New hydrocodone-acetaminophen 5-325 mg Tablet 1 tab PO Q6H PRN (Reason: Moderate To Severe Pain) Qty: 10 0RF Continued Iron (ferrous sulfate) 325 mg (65 mg iron) Tablet 325 mg PO DAILY 0RF 28-800 mg-mcg Tablet PO 0RF Discharge Orders: Discharge Order (Routine); Ordered 06/03/22 Ordered By: Thee Fish Referrals: Thee Fish MD [Primary Care Provider] - 06/09/22 9:45 am (incision check- 06/09/22 @9:45. Set up 6 week post- visit at this time. ) Discharge Diet: Regular Discharge Activity: Limit activity as instructed Patient Instructions: Depression (DC), Bleeding (DC), Preeclampsia and Eclampsia After Delivery (GEN), Tubal Ligation (DC), OB Discharge Report, OB Food/Drug Interaction Guide, OB Care at Home, Opioid Safety, OB Vaginal Deliveries Discharge Attestations PHOTOGRAPHIC LABORATORY TECHNICIAN Time Spent in Discharge Care*: less than 30 min Coding Level of Care Code Acute Director [facility] for Chg Fwd Diagnoses Consultation for sterilization Z30.09 Status post vaginal delivery
--- NOTE | 2022-06-03 09:43 | ANE.PACU2 ---
Inpatient post-anesthesia follow up: Airway intact: Yes Vital signs: Temperature 98.2 F Pulse Rate 79 Respiratory Rate 18 Blood Pressure 139/85 Pulse Oximetry 100 Oxygen Delivery Me thod Room Air Oxygen Flow Rate Fraction of Inspir ed Oxygen Hydration adequate: Yes Nausea and vomiting: No Pain level: 2 Mental status: Baseline
[2022-06-03] MEDS: ibuprofen 800 mg tablet PO (14:05)
== END 2022-06-03 19:10 | disposition home or self-care (01) | DRG 798 ==
LOC: OPOB 08:57 → OBGYN 08:57
PROVIDERS: Admitting Provider Family Medicine; PCP Family Medicine; Visit Provider Family Medicine
PROC: 0UT70ZZ Resection of Bilateral Fallopian Tubes, Open Approach (ICD-10-PCS; CPT 58605; principal; 2022-06-03 07:00)
DX: O66.0 Obstructed labor due to shoulder dystocia (principal); Z37.0 Single live birth; O77.0 Labor and delivery complicated by meconium in amniotic fluid; O69.81X0 Labor and delivery complicated by cord around neck, without compression, not applicable or unspecified; Z3A.40 40 weeks gestation of pregnancy; Z30.2 Encounter for sterilization
CPT/HCPCS: 12345; 36415; 51702; 59025; 59409; 85025; 85027; 88302; 96374; 99211; J0330; J1100; J2405; J2704; J2765; J2795; J3010; J3490

== ENCOUNTER 2024-06-10 00:03 | Emergency (ER) | payer MEDICAID, SELFPAY ==
[2024-06-10 00:12] VITALS: BP 129/71; PULSE 76; RESP 18; TEMP 36.7; O2SAT 98
--- NOTE | 2024-06-10 00:25 | CTR_ITS ---
PROCEDURE INFORMATION: Exam: CT Abdomen And Pelvis Without Contrast Exam date and time: 06/10/2024 12:56 AM Age: 24 years old Clinical indication: Abdominal pain; Right; Prior surgery; Surgery date: 6+ months; Surgery type: All [employer] Intelligence shunt. Tubal. Patient HX: RT flank pain with dysuria. ; Additional info: Flank pain, dysuria TECHNIQUE: Imaging protocol: Computed tomography of the abdomen and pelvis without contrast. Radiation optimization: All CT scans at this facility use at least one of these dose optimization techniques: automated exposure control; mA and/or kV adjustment per patient size (includes targeted exams where dose is matched to clinical indication); or iterative reconstruction. COMPARISON: CT abdomen pelvis w con* [id number] 08/08/2021 8:04 PM RADIATION DOSE METRICS: Total DLP (mGy-cm): 301.42 FINDINGS: Tubes, catheters and devices: Partially evaluated presumed ventricular peritoneal shunt catheter. Lungs: Lung bases are clear as visualized. Heart: Base of heart is unremarkable as visualized. Liver: Normal. No mass. Gallbladder and biliary ducts: Gallbladder is decompressed. Pancreas: Normal. No ductal dilation. Spleen: Incidental splenule is noted in the left upper quadrant. Adrenal glands: Normal. No mass. Kidneys and ureters: Prominence of the ureters, [id number]-left. Stomach and bowel: Moderate rectal stool burden. Fecalization of the distal ileum. Appendix: No evidence of appendicitis. Intraperitoneal space: Small volume lower abdominal pelvic ascites. Vasculature: Unremarkable. No abdominal aortic aneurysm. Lymph nodes: Unremarkable. No enlarged lymph nodes. Urinary bladder: Circumferential thickening of the urinary bladder likely on the basis underdistention. Reproductive: Physiologic sized cysts of the bilateral adnexa. Bones/joints: Changes anatomy is noted, partial sacralization of the left transverse process of L5. Early degenerative endplate changes of the thoracolumbar spine. Soft tissues: Unremarkable. CT/CT kidney stone [id number] IMPRESSION: 1. Prominence of the bilateral ureters, [id number]-left can be seen in urinary tract infection. Correlate clinically. 2. Circumferential thickening of the urinary bladder on the basis of underdistention, superimposed cystitis is difficult to out. 3. Prominent ovaries with physiologic cysts. If there is concern pelvic pathology recommend ultrasound. 4. Additional nonacute findings as above.
--- NOTE | 2024-06-10 00:26 | ED_ITS ---
Documented by User: MARTIN Rodriguez 06/12/24 13:32 HPI - Back Pain/Injury 2 General: Chief Complaint: Back Pain/Injury Stated Complaint: Possible Kidney Stone Time Seen by Provider: 06/10/24 00:25 History of Present Illness: 24-year-old female comes in with flank p ain and suprapubic pain. Patient reports some mild nausea. Patient been using ibuprofen with minimal pain relief. Patient appears nontoxic. Patient reports no fever. Patient has had her tubes tied but no other surgeries. Patient came into the ER tonight due to inability to rest due to her discomfort. Patient has a [employer] shunt for hydrocephalus. Associated symptoms: Reports abdominal pain and nausea Review of Systems 2 General: Reports: 10 or more systems reviewed and unremarkable except in HPI and below GI: Reports: abdominal pain and nausea PFSH ED 2 PFSH: Surgical History [employer] (ventriculoperitoneal) shunt status Social History Smoking and tobacco/nicotine status: never used tobacco/nicotine Physical Exam 2 Const: COMMON NORMALS: alert HENMT: COMMON NORMALS: normocephalic HEAD & SCALP: normocephalic Neck/C-Spine: COMMON NORMALS: full ROM Resp: COMMON NORMALS: normal respiratory effort Cardio: COMMON NORMALS: regular rate RATE: regular rate GI: COMMON NORMALS: Soft to palpation PALPATION: Yes Soft to palpation and Yes Tenderness to palpation present (GI) (Suprapubic) : COMMON NORMALS: Yes no CVA tenderness BLADDER/KIDNEY EXAM: Yes no CVA tenderness Back/Pelvis: COMMON NORMALS: no CVA tenderness Extremity: COMMON NORMALS: normal to inspection Neuro: SENSORIUM/ORIENTATION: Yes alert Skin: COMMON NORMALS: turgor normal GENERAL SKIN EXAM: turgor normal Course 2 Vital Signs: Vital signs: Vital Signs Temperature 98.1 F 06/10/24 03:23 Pulse Rate 76 06/10/24 03:23 Respiratory Rate 16 06/10/24 03:23 Blood Pressure 125/78 06/10/24 03:23 Pulse Oximetry 97 06/10/24 03:23 Oxygen Delivery Me thod Room Air 06/10/24 03:22 MDM - Back Pain/Injury Medical Decision Making 24-year-old female comes in today for complaints of lower back pain and suprapubic pain. Patient reported right flank pain to the nurse but denied 1 side hurting more over the last me. On exam no CVA tenderness. Suprapubic discomfort. Vital signs are normal. Differential diagnosis includes renal calculi, urinary tract infection, gastroenteritis, colitis, constipation, pancreatitis. Labs 06/10/24 00:44 06/10/24 00:44 Radiology Impressions Abdomen/Pelvis CT 06/10/24 00:25 IMPRESSION: 1. Prominence of the bilateral ureters, [id number]-left can be seen in urinary tract infection. Correlate clinically. 2. Circumferential thickening of the urinary bladder on the basis of underdistention, superimposed cystitis is difficult to out. 3. Prominent ovaries with physiologic cysts. If there is concern pelvic pathology recommend ultrasound. 4. Additional nonacute findings as above. Laboratory Results WBC 9.61 10^3/uL (3.29-11.43) 06/10/24 00:44 RBC 4.20 10^6/uL (3.85-5.65) 06/10/24 00:44 Hgb 13.10 g/dL (11.27-16.99) 06/10/24 00:44 Hct 38.8 % (36-47) 06/10/24 00:44 MCV 92.4 fl (85-98) 06/10/24 00:44 MCH 31.2 pg (27-33) 06/10/24 00:44 MCHC 33.8 g/dL (30-55) 06/10/24 00:44 RDW 11.8 % (12.1-15.1) L 06/10/24 00:44 Plt Count 311 10^3/cmm (157-399) 06/10/24 00:44 MPV 11.1 fL (7.4-10.4) H 06/10/24 00:44 Neut % (Auto) 57.4 % 06/10/24 00:44 Lymph % (Auto) 28.5 % 06/10/24 00:44 Green % (Auto) 9.9 % 06/10/24 00:44 Eos % (Auto) 3.7 % 06/10/24 00:44 Baso % (Auto) 0.3 % 06/10/24 00:44 Neut # (Auto) 5.51 10^3/uL (1.8-7.7) 06/10/24 00:44 Lymph # (Auto) 2.7 10^3/uL (0.8-4.8) 06/10/24 00:44 Green # (Auto) 1.0 10^3/uL (0.2-0.9) H 06/10/24 00:44 Eos # (Auto) 0.4 10^3/uL (0.0-0.8) 06/10/24 00:44 Baso # (Auto) 0.0 10^3/uL (0.0-0.1) 06/10/24 00:44 Nucleated RBC % (auto) 0 % 06/10/24 00:44 Nucleated RBCs # 0.0 /100WBC 06/10/24 00:44 Sodium 143 mmol/L (136-145) 06/10/24 00:44 Potassium 3.7 mmol/L (3.5-5.1) 06/10/24 00:44 Chloride 107 mmol/L (98-107) 06/10/24 00:44 Carbon Dioxide 25 mmol/L (22-29) 06/10/24 00:44 Anion Gap 14.7 (5-19) 06/10/24 00:44 BUN 13 mg/dL (6-20) 06/10/24 00:44 Creatinine 0.8 mg/dL (0.5-0.9) 06/10/24 00:44 GFR Calculation 87.4 mL/min (90-130) L 06/10/24 00:44 Glucose 107 mg/dL (65-115) 06/10/24 00:44 Calculated Osmolality 297 mOsm/kg (285-295) H 06/10/24 00:44 Calcium 8.8 mg/dL (8.5-10.5) 06/10/24 00:44 Total Bilirubin 0.2 mg/dL (0.15-1.2) 06/10/24 00:44 AST 11 U/L (0-32) 06/10/24 00:44 ALT 15 U/L (0-33) 06/10/24 00:44 Alkaline Phosphatase 65 U/L (35-105) 06/10/24 00:44 Total Protein 7.1 g/dL (6.6-8.7) 06/10/24 00:44 Albumin 4.1 g/dL (3.5-5.2) 06/10/24 00:44 Globulin 3.0 g/dL (1.3-4.6) 06/10/24 00:44 Lipase 36 U/L (13-60) 06/10/24 00:44 HCG, Qual Negative (Negative) 06/10/24 00:44 Urine Color Yellow (Yellow) 06/10/24 00:20 Urine Appearance Turbid (CLEAR) A 06/10/24 00:20 Urine pH 6.5 (5-7) 06/10/24 00:20 Ur Specific [place] 1.015 (1.005-1.030) 06/10/24 00:20 Urine Protein Trace (Negative) 06/10/24 00:20 Urine Glucose (UA) Norm (Normal) 06/10/24 00:20 Urine Ketones Negative (Negative) 06/10/24 00:20 Urine Blood Neg (Negative) 06/10/24 00:20 Urine Nitrate Negative (Negative) 06/10/24 00:20 Urine Bilirubin Neg (Negative) 06/10/24 00:20 Urine Urobilinogen Neg mg/dL (Negative) 06/10/24 00:20 Ur Leukocyte Esterase Negative (Negative) 06/10/24 00:20 Urine RBC 0-4 /hpf (0-2) H 06/10/24 00:20 Urine WBC 5-10 /hpf (0-5) H 06/10/24 00:20 Ur Squamous Epith Cells 25-40 /hpf (0-5) H 06/10/24 00:20 Amorphous Sediment Not Reportable 06/10/24 00:20 Urine Bacteria 1+ /hpf (NONE) H 06/10/24 00:20 Urine Mucus 3+ /hpf 06/10/24 00:20 Discharge Plan Discharge Patient Disposition: Home Clinical Impression: Abdominal pain Qualifiers: Abdominal location: unspecified location Qualified Code(s): R10.9 - Unspecified abdominal pain Condition: Stable Prescriptions: New ciprofloxacin HCl 500 mg tablet 500 mg PO Q12H Qty: 20 0RF No Action Iron (ferrous sulfate) 325 mg (65 mg iron) Tablet 325 mg PO DAILY 28-800 mg-mcg Tablet PO hydrocodone-acetaminophen 5-325 mg Tablet 1 tab PO Q6H PRN (Reason: Moderate To Severe Pain) Qty: 10 0RF Discharge Orders: Discharge ED (Routine); Ordered 06/10/24 Ordered By: Ezequiel Torres Patient Instructions: Abdominal Pain (ED) Activity Restrictions/Additional Instructions: Take all your antibiotics as directed please follow-up with your family practice physician within next 7 to 10 days for further evaluation and treatment. Thank you for choosing [facility] for your healthcare needs today. Please realize that you were seen in the emergency department and that we are providing you with an emergency medical screening exam and this may not be a complete and all exclusive of all testing and/or medical workup we may need to determine your element or severity of your illness. It is very important that you follow-up as instructed with your primary care provider or specialist for the additional evaluation and to discuss your medical treatment plan. You may return to the emergency department should you have concerns or if your condition changes or worsens in any way. Coding Level of Care Code ED [facility] for Chg Fwd Documented by User: Ezequiel Torres DO 06/10/24 04:39 HPI - Back Pain/Injury 2 General: Chief Complaint: Back Pain/Injury Stated Complaint: Possible Kidney Stone Time Seen by Provider: 06/10/24 00:25 [facility] ED 2 PFSH: Surgical History [employer] (ventriculoperitoneal) shunt status Social History Smoking and tobacco/nicotine status: never used tobacco/nicotine Course 2 Vital Signs: Vital signs: Vital Signs Temperature 98.1 F 06/10/24 03:23 Pulse Rate 76 06/10/24 03:23 Respiratory Rate 16 06/10/24 03:23 Blood Pressure 125/78 06/10/24 03:23 Pulse Oximetry 97 06/10/24 03:23 Oxygen Delivery Me thod Room Air 06/10/24 03:22 MDM - Back Pain/Injury Medical Decision Making 24-year-old female comes in today for complaints of lower back pain and suprapubic pain. Patient reported right flank pain to the nurse but denied 1 side hurting more over the last me. On exam no CVA tenderness. Suprapubic discomfort. Vital signs are normal. Differential diagnosis includes renal calculi, urinary tract infection, gastroenteritis, colitis, constipation, pancreatitis. Patient care turned over to myself at shift change, CT scan came back showed prominence of bilateral ureters, can be seen urinary tract infection, urine did not look overly infected however did have some bacteria in it but was contaminated specimen. We will go ahead and treat it patient was informed of these findings. Patient be discharged home. Labs 06/10/24 00:44 06/10/24 00:44 Radiology Impressions Abdomen/Pelvis CT 06/10/24 00:25 IMPRESSION: 1. Prominence of the bilateral ureters, [id number]-left can be seen in urinary tract infection. Correlate clinically. 2. Circumferential thickening of the urinary bladder on the basis of underdistention, superimposed cystitis is difficult to out. 3. Prominent ovaries with physiologic cysts. If there is concern pelvic pathology recommend ultrasound. 4. Additional nonacute findings as above. Laboratory Results WBC 9.61 10^3/uL (3.29-11.43) 06/10/24 00:44 RBC 4.20 10^6/uL (3.85-5.65) 06/10/24 00:44 Hgb 13.10 g/dL (11.27-16.99) 06/10/24 00:44 Hct 38.8 % (36-47) 06/10/24 00:44 MCV 92.4 fl (85-98) 06/10/24 00:44 MCH 31.2 pg (27-33) 06/10/24 00:44 MCHC 33.8 g/dL (30-55) 06/10/24 00:44 RDW 11.8 % (12.1-15.1) L 06/10/24 00:44 Plt Count 311 10^3/cmm (157-399) 06/10/24 00:44 MPV 11.1 fL (7.4-10.4) H 06/10/24 00:44 Neut % (Auto) 57.4 % 06/10/24 00:44 Lymph % (Auto) 28.5 % 06/10/24 00:44 Green % (Auto) 9.9 % 06/10/24 00:44 Eos % (Auto) 3.7 % 06/10/24 00:44 Baso % (Auto) 0.3 % 06/10/24 00:44 Neut # (Auto) 5.51 10^3/uL (1.8-7.7) 06/10/24 00:44 Lymph # (Auto) 2.7 10^3/uL (0.8-4.8) 06/10/24 00:44 Green # (Auto) 1.0 10^3/uL (0.2-0.9) H 06/10/24 00:44 Eos # (Auto) 0.4 10^3/uL (0.0-0.8) 06/10/24 00:44 Baso # (Auto) 0.0 10^3/uL (0.0-0.1) 06/10/24 00:44 Nucleated RBC % (auto) 0 % 06/10/24 00:44 Nucleated RBCs # 0.0 /100WBC 06/10/24 00:44 Sodium 143 mmol/L (136-145) 06/10/24 00:44 Potassium 3.7 mmol/L (3.5-5.1) 06/10/24 00:44 Chloride 107 mmol/L (98-107) 06/10/24 00:44 Carbon Dioxide 25 mmol/L (22-29) 06/10/24 00:44 Anion Gap 14.7 (5-19) 06/10/24 00:44 BUN 13 mg/dL (6-20) 06/10/24 00:44 Creatinine 0.8 mg/dL (0.5-0.9) 06/10/24 00:44 GFR Calculation 87.4 mL/min (90-130) L 06/10/24 00:44 Glucose 107 mg/dL (65-115) 06/10/24 00:44 Calculated Osmolality 297 mOsm/kg (285-295) H 06/10/24 00:44 Calcium 8.8 mg/dL (8.5-10.5) 06/10/24 00:44 Total Bilirubin 0.2 mg/dL (0.15-1.2) 06/10/24 00:44 AST 11 U/L (0-32) 06/10/24 00:44 ALT 15 U/L (0-33) 06/10/24 00:44 Alkaline Phosphatase 65 U/L (35-105) 06/10/24 00:44 Total Protein 7.1 g/dL (6.6-8.7) 06/10/24 00:44 Albumin 4.1 g/dL (3.5-5.2) 06/10/24 00:44 Globulin 3.0 g/dL (1.3-4.6) 06/10/24 00:44 Lipase 36 U/L (13-60) 06/10/24 00:44 HCG, Qual Negative (Negative) 06/10/24 00:44 Urine Color Yellow (Yellow) 06/10/24 00:20 Urine Appearance Turbid (CLEAR) A 06/10/24 00:20 Urine pH 6.5 (5-7) 06/10/24 00:20 Ur Specific [place] 1.015 (1.005-1.030) 06/10/24 00:20 Urine Protein Trace (Negative) 06/10/24 00:20 Urine Glucose (UA) Norm (Normal) 06/10/24 00:20 Urine Ketones Negative (Negative) 06/10/24 00:20 Urine Blood Neg (Negative) 06/10/24 00:20 Urine Nitrate Negative (Negative) 06/10/24 00:20 Urine Bilirubin Neg (Negative) 06/10/24 00:20 Urine Urobilinogen Neg mg/dL (Negative) 06/10/24 00:20 Ur Leukocyte Esterase Negative (Negative) 06/10/24 00:20 Urine RBC 0-4 /hpf (0-2) H 06/10/24 00:20 Urine WBC 5-10 /hpf (0-5) H 06/10/24 00:20 Ur Squamous Epith Cells 25-40 /hpf (0-5) H 06/10/24 00:20 Amorphous Sediment Not Reportable 06/10/24 00:20 Urine Bacteria 1+ /hpf (NONE) H 06/10/24 00:20 Urine Mucus 3+ /hpf 06/10/24 00:20 All radiology interpretation(s) finalized by discharge Discharge Plan Discharge Patient Disposition: Home Clinical Impression: Abdominal pain Qualifiers: Abdominal location: unspecified location Qualified Code(s): R10.9 - Unspecified abdominal pain Condition: Stable Prescriptions: New ciprofloxacin HCl 500 mg tablet 500 mg PO Q12H Qty: 20 0RF No Action Iron (ferrous sulfate) 325 mg (65 mg iron) Tablet 325 mg PO DAILY 28-800 mg-mcg Tablet PO hydrocodone-acetaminophen 5-325 mg Tablet 1 tab PO Q6H PRN (Reason: Moderate To Severe Pain) Qty: 10 0RF Discharge Orders: Discharge ED (Routine); Ordered 06/10/24 Ordered By: Ezequiel Torres Patient Instructions: Abdominal Pain (ED) Activity Restrictions/Additional Instructions: Take all your antibiotics as directed please follow-up with your family practice physician within next 7 to 10 days for further evaluation and treatment. Thank you for choosing [facility] for your healthcare needs today. Please realize that you were seen in the emergency department and that we are providing you with an emergency medical screening exam and this may not be a complete and all exclusive of all testing and/or medical workup we may need to determine your element or severity of your illness. It is very important that you follow-up as instructed with your primary care provider or specialist for the additional evaluation and to discuss your medical treatment plan. You may return to the emergency department should you have concerns or if your condition changes or worsens in any way. Coding Level of Care Code ED [facility] for Juanito Sage
[2024-06-10 00:50] VITALS: BP 125/78; PULSE 73; RESP 16; O2SAT 97
[2024-06-10 00:52] LABS: Basophils % 0.3 %; Eosinophils # 0.4 10^3/uL (0.0-0.8); Eosinophils % 3.7 %; Hematocrit 38.8 % (36-47); Lymphocytes # 2.7 10^3/uL (0.8-4.8); Lymphocytes % 28.5 %; Mean Corpuscular HGB Conc 33.8 g/dL (30-55); Mean Corpuscular Hemoglobin 31.2 pg (27-33); Mean Corpuscular Volume 92.4 fl (85-98); Mean Platelet Volume 11.1 fL (7.4-10.4); Monocytes % 9.9 %; Neutrophils # 5.51 10^3/uL (1.8-7.7); Neutrophils % 57.4 %; Nucleated Red Blood Cells % 0 %; Platelet Count 311 10^3/cmm (157-399); Red Cell Distribution Width 11.8 % (12.1-15.1); White Blood Count 9.61 10^3/uL (3.29-11.43)
[2024-06-10 01:03] LABS: HCG, Serum Qual Negative (Negative)
[2024-06-10 01:09] LABS: Alanine Aminotransferase 15 U/L (0-33); Albumin Level 4.1 g/dL (3.5-5.2); Alkaline Phosphatase 65 U/L (35-105); Anion Gap 14.7 (5-19); Aspartate Amino Transferase 11 U/L (0-32); Blood Urea Nitrogen 13 mg/dL (6-20); Calcium 8.8 mg/dL (8.5-10.5); Carbon Dioxide 25 mmol/L (22-29); Chloride 107 mmol/L (98-107); Glomerular Filtration Rate 87.4 mL/min (90-130); Glucose 107 mg/dL (65-115); Lipase 36 U/L (13-60); Osmolality Calculated 297 mOsm/kg (285-295); Potassium 3.7 mmol/L (3.5-5.1); Sodium 143 mmol/L (136-145); Total Bilirubin 0.2 mg/dL (0.15-1.2); Total Protein 7.1 g/dL (6.6-8.7)
[2024-06-10 01:20] VITALS: PULSE 72; RESP 16; O2SAT 97
[2024-06-10 01:30] VITALS: BP 125/78; PULSE 77; RESP 16; O2SAT 96
[2024-06-10 01:46] LABS: Bilirubin Urine Neg (Negative); Blood Urine Neg (Negative); Glucose Urine UA Norm (Normal); Ketones Urine Negative (Negative); Nitrate Urine Negative (Negative); Protein Urine Trace (Negative); Specific Gravity, Urine 1.015 (1.005-1.030); Urine Appearance Turbid (CLEAR); Urine Color Yellow (Yellow); pH Urine 6.5 (5-7)
[2024-06-10 01:47] LABS: Add Urine Culture? No; Add Urine Microscopic? YES; Bacteria Urine 1+ /hpf; Leukocyte Esterase Urine Negative (Negative); Mucus Urine 3+ /hpf; RBC Urine 0-4 /hpf (0-2); Squamous Epithelial Cell Urine 25-40 /hpf (0-5); Urobilinogen Urine Neg (Negative)
[2024-06-10] MEDS: ciprofloxacin 500 mg Tablet PO (03:21)
[2024-06-10 03:22] VITALS: BP 125/78; PULSE 76; RESP 16; O2SAT 97
[2024-06-10 03:23] VITALS: BP 125/78; PULSE 76; RESP 16; TEMP 36.7; O2SAT 97
== END 2024-06-10 03:26 | disposition home or self-care (01) ==
PROVIDERS: Emergency Provider Nurse Practitioner Family
DX: R10.9 Unspecified abdominal pain (principal)
CPT/HCPCS: 74176; 80053; 81001; 83690; 84703; 85025; 99284